=== PATIENT | female | born 1950 | race Caucasian/White ===

== ENCOUNTER 2019-01-03 06:43 | Day surgery (SDC) | payer MEDICARE ==
[2019-01-03] MEDS ORDERED: Lidocaine 2% 100 MG/5 ML Syringe IVPUSH ONE (06:44)
[2019-01-03] MEDS ORDERED: Propofol 200 MG/20 ML SDV IV ONE (06:44)
[2019-01-03] MEDS ORDERED: Lactated Ringers 1,000 ML IV SCH (06:45)
--- NOTE | 2019-01-03 08:16 | PREOP ---
ADMISSION DATE: 01/03/2019 CHIEF COMPLAINT: Positive Cologuard test. HISTORY OF PRESENT ILLNESS: This is a 68-year-old white female who is referred with positive Cologuard test. She is otherwise without complaints. Last scope was 10 years ago. She originally was supposed to have this procedure performed in September, but her had a coronary artery bypass graft, presents now to have this performed. PROBLEMS: Include history of cataract and astigmatism. SURGICAL HISTORY: Significant for appendectomy, tubal ligation. FAMILY HISTORY: Significant for bone cancer, liver cancer, and stroke. SOCIAL HISTORY: The patient is , with 2 children. She is a current everyday smoker. Denies any alcohol use. ALLERGIES: She has no known drug allergies. REVIEW OF SYSTEMS: The patient denies any constitutional, pulmonary, cardiac issues. Does note some left-sided abdominal pain. PHYSICAL EXAMINATION: GENERAL: This is a well-developed, well-nourished female, appearing in no acute distress. HEENT: Grossly within normal limits. LUNGS: Clear to auscultation. HEART: Had a regular rate and rhythm. ABDOMEN: Soft, nontender. ASSESSMENT: Positive Cologuard test. PLAN: Colonoscopy procedure and risks explained to the patient to include bleeding, perforation, and infection. The patient expresses understanding and she asked us to proceed. /[id number] /MEGHANNL
--- NOTE | 2019-01-03 08:20 | PCM.OPNOTE ---
- General Post-Op/Procedure Note Date of Surgery/Procedure: 01/03/19 Operative Procedure(s): c scope with bx Findings: rectal polyps x7 Pre Op Diagnosis: + Cologuard Post-Op Diagnosis: rectal polyps Anesthesia Technique: MAC Primary Surgeon: Antoni Keith Anesthesia Provider: Gerda Montiel Pathology: rectal polyps Complications: None Condition: Good Free Text/Narrative:: see dictation
--- NOTE | 2019-01-03 12:21 | OR ---
DATE OF OPERATION: 01/03/2019 SURGEON: Antoni Keith MD PROCEDURE PERFORMED: Colonoscopy with cold forceps biopsy. PREOPERATIVE DIAGNOSIS: Positive Cologuard test. POSTOPERATIVE DIAGNOSIS: Rectal polyps x7. INDICATIONS FOR PROCEDURE: This is a 68-year-old white female, who was referred with a positive Cologuard test. She was offered and accepted colonoscopy. DESCRIPTION OF OPERATION: After an excellent IV sedation was administered, digital rectal exam was performed. No marked abnormality was noted. The flexible colonoscope was inserted and advanced to the cecum without difficulty. Prep was excellent. The following findings were noted. Ascending colon, unremarkable. Transverse colon, unremarkable. Descending colon, unremarkable. Sigmoid, unremarkable. Rectum, approximately 7 hyperplastic appearing polyps were encountered. These were biopsied and submitted in a single container. The patient tolerated the procedure well. Results by letter. /[id number] /MEGHANNL
== END 2019-01-03 09:30 | disposition home or self-care (01) ==
LOC: FB.SDS 06:43
PROVIDERS: ATTEND Surgery
DX: K62.1 Rectal polyp (principal); F17.210 Nicotine dependence, cigarettes, uncomplicated; M19.90 Unspecified osteoarthritis, unspecified site
CPT/HCPCS: 00811; 45380; 88305; J2001; J2704; J7120

== ENCOUNTER 2020-03-27 05:51 | Emergency (ER) | payer MEDICARE ==
--- NOTE | 2020-03-27 06:11 | EDM.PDOC ---
ED HPI GENERAL MEDICAL PROBLEM - General Stated Complaint: HIP AND LEG PAIN Time Seen by Provider: 03/27/20 05:55 Source of Information: Reports: Patient History Limitations: Reports: No Limitations - History of Present Illness INITIAL COMMENTS - FREE TEXT/NARRATIVE: Patient presented to the ED because of left buttock pain radiating to the left thigh all the way down to her great toe. There is no associated low back pain, trauma, or injury. She apparently have MRI of her lumbar spine which showed nerve entrapment. There is no lost of bowel or bladder control. Treatments NON DESTRUCTIVE EVALUATION SPECIALIST: Reports: Acetaminophen L hip radiating to toes Pain Score (Numeric/FACES): 10 - Related Data Allergies Allergy/AdvReac Type Severity Reaction Status Date / Time No Known Allergies Allergy Verified 03/27/20 05:58 Home Meds: Home Meds Carboxymethylcellulos/Glycerin [Refresh Optive Gel Eye Drops] 1 drop EYEBOTH Q2H 01/03/19 [History] Gabapentin [Gralise] 300 mg PO TID #30 tab.er.24h 03/27/20 [Rx] Rosuvastatin [Crestor] 20 mg PO BEDTIME 03/27/20 [History] Valsartan [Diovan] 60 mg PO DAILY 03/27/20 [History] hydroCHLOROthiazide [Hydrochlorothiazide] 25 mg PO DAILY 03/27/20 [History] Past Medical History HEENT History: Reports: Cataract, Impaired Vision, Other (See Below) Other HEENT History: EYE CONDITION THAT CAUSES HIGH LIGHT SENSISTIVITY Cardiovascular History: Reports: None Respiratory History: Reports: None Gastrointestinal History: Reports: Colon Polyp, Other (See Below) Other Gastrointestinal History: + COLOGUARD TEST 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 RESIDENT History: II PARA II Musculoskeletal History: Reports: Arthritis Neurological History: Reports: None Psychiatric History: Reports: None Endocrine/Metabolic History: Reports: None Hematologic History: Reports: None Immunologic History: Reports: None Oncologic (Cancer) History: Reports: None Dermatologic History: Reports: None - Infectious Disease History Infectious Disease History: Reports: Chicken Pox, Measles, Mumps, Rubella - Past Surgical History Head Surgeries/Procedures: Reports: None HEENT Surgical History: Reports: Adenoidectomy, Tonsillectomy GI Surgical History: Reports: Appendectomy, Colonoscopy Female Surgical History: Reports: Tubal Ligation Social & Family History - Family History GI: Reports: Colon Polyps - Caffeine Use Caffeine Use: Reports: Coffee, Soda ED ROS GENERAL - Review of Systems Review Of Systems: See Below Constitutional: Reports: No Symptoms HEENT: Reports: No Symptoms Respiratory: Reports: No Symptoms Cardiovascular: Reports: No Symptoms Endocrine: Reports: No Symptoms GI/Abdominal: Reports: No Symptoms : Reports: No Symptoms Musculoskeletal: Reports: No Symptoms Skin: Reports: No Symptoms Neurological: Reports: Paresthesia, Tingling Psychiatric: Reports: No Symptoms ED EXAM, GENERAL - Physical Exam Exam: See Below Exam Limited By: Intoxication General Appearance: Alert, No Apparent Distress Eye Exam: Bilateral Eye: PERRL Nose: Normal Inspection, Normal Mucosa, No Blood Throat/Mouth: Normal Inspection, Normal Lips, Normal Teeth, Normal Gums Head: Atraumatic, Normocephalic Neck: Normal Inspection, Supple, Non-Tender, Full Range of Motion Respiratory/Chest: No Respiratory Distress, Lungs Clear, Normal Breath Sounds Cardiovascular: Normal Peripheral Pulses, Regular Rate, Rhythm, No Edema, No Gallop, No JVD, No Murmur GI/Abdominal: Normal Bowel Sounds, Soft, Non-Tender, No Organomegaly Back Exam: Normal Inspection, Full Range of Motion Extremities: Normal Inspection, Normal Range of Motion, Non-Tender Neurological: Alert, Oriented, CN II-XII Intact Psychiatric: Normal Affect, Normal Mood Course - Vital Signs Text/Narrative:: Gabapentin 600 mg po x1 Flexeril 10 mh PO x1 Last Recorded V/S: Last Vital Signs Temp 35.2 C L 03/27/20 05:51 Pulse 64 03/27/20 07:24 Resp 18 03/27/20 07:24 BP 98/46 L 03/27/20 07:24 Pulse Ox 97 03/27/20 07:24 - Orders/Labs/Meds Meds: Medications Discontinued Medications Generic Name Dose Route Start Last Admin Trade Name Freq PRN Reason Stop Dose Admin Cyclobenzaprine HCl 10 mg 03/27/20 06:18 03/27/20 06:31 Flexeril PO 03/27/20 06:19 10 mg ONETIME ONE Administration Gabapentin 600 mg 03/27/20 06:17 03/27/20 06:31 Neurontin PO 03/27/20 06:18 600 mg NOW STA Administration Departure - Departure Time of Disposition: 06:50 Disposition: Home, Self-Care 01 Condition: Good Clinical Impression: Nerve entrapment, Neuropathic pain - Discharge Information Prescriptions: Gabapentin [Gralise] 300 mg PO TID #30 tab.er.24h Instructions: Cyclobenzaprine tablets, Gabapentin capsules or tablets, Neuropathic Pain Referrals: Annabel Acosta PA-C [Primary Care Provider] - Forms: ED Department Discharge Additional Instructions: Please read discharge instructions on neuropathic pain and nerve entrapment Take gabapentin 300 mg with tylenol 1000 mg 3 tomes daily as needed for pain Follow up if symptoms persist Sepsis Event Note (ED) - Evaluation Sepsis Screening Result: No Definite Risk - Focused Exam Vital Signs: Vital Signs Temp Pulse Resp BP Pulse Ox 03/27/20 07:24 64 18 98/46 L 97 03/27/20 05:51 35.2 C L 59 L 18 112/50 L 98
[2020-03-27] MEDS ORDERED: Gabapentin 300 MG Cap PO STA (06:17)
[2020-03-27] MEDS ORDERED: Cyclobenzaprine 10 MG Tab PO ONE (06:18)
== END 2020-03-27 07:03 | disposition home or self-care (01) ==
LOC: FB.ED 05:51
DX: G58.9 Mononeuropathy, unspecified (principal); Z98.51 Tubal ligation status; Z90.49 Acquired absence of other specified parts of digestive tract
CPT/HCPCS: 99283; A9270

== ENCOUNTER 2020-11-27 10:09 | Emergency (ER) | payer MEDICARE ==
[2020-11-27] MEDS ORDERED: Aspirin 81 MG Tab.Chew PO ONE (10:21)
--- NOTE | 2020-11-27 10:51 | EDM.PDOC ---
ED HPI GENERAL MEDICAL PROBLEM - General Chief Complaint: Chest Pain Stated Complaint: CHEST PAIN Time Seen by Provider: 11/27/20 10:15 Source of Information: Reports: Patient, Family History Limitations: Reports: No Limitations - History of Present Illness INITIAL COMMENTS - FREE TEXT/NARRATIVE: Patient presented to the ED because of on and off chest pain for the past 2 years. The pain is dull, heavy, 2/10 at worse. The pain sometimes radiates to the left arm. There is no associated nausea,vomiting, dyspnea or diaphoresis. She had a stress test done 2 years ago which was normal. Chest Pain Score (Numeric/FACES): 3 - Related Data Allergies Allergy/AdvReac Type Severity Reaction Status Date / Time No Known Allergies Allergy Verified 03/27/20 05:58 Home Meds: Home Meds Carboxymethylcellulos/Glycerin [Refresh Optive Gel Eye Drops] 1 drop EYEBOTH Q2H 01/03/19 [History] Gabapentin [Gralise] 300 mg PO TID #30 tab.er.24h 03/27/20 [Rx] Rosuvastatin [Crestor] 20 mg PO BEDTIME 03/27/20 [History] Valsartan [Diovan] 60 mg PO BID 03/27/20 [History] hydroCHLOROthiazide [Hydrochlorothiazide] 25 mg PO DAILY 03/27/20 [History] Acetaminophen [Tylenol Arthritis] 650 mg PO Q8HR PRN 11/27/20 [History] Aspirin [Adult Low Dose Aspirin EC] 81 mg PO DAILY 11/27/20 [History] Past Medical History HEENT History: Reports: Cataract, Impaired Vision, Other (See Below) Other HEENT History: EYE CONDITION THAT CAUSES HIGH LIGHT SENSISTIVITY Cardiovascular History: Reports: None Respiratory History: Reports: None Gastrointestinal History: Reports: Colon Polyp, Other (See Below) Other Gastrointestinal History: + COLOGUARD TEST Genitourinary History: Reports: None 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 II Musculoskeletal History: Reports: Arthritis Neurological History: Reports: None Psychiatric History: Reports: None Endocrine/Metabolic History: Reports: None Hematologic History: Reports: None Immunologic History: Reports: None Oncologic (Cancer) History: Reports: None Dermatologic History: Reports: None - Infectious Disease History Infectious Disease History: Reports: Chicken Pox, Measles, Mumps, Rubella - Past Surgical History Head Surgeries/Procedures: Reports: None HEENT Surgical History: Reports: Adenoidectomy, Tonsillectomy GI Surgical History: Reports: Appendectomy, Colonoscopy Female Surgical History: Reports: Tubal Ligation Social & Family History - Family History Family Medical History: No Pertinent Family History GI: Reports: Colon Polyps - Tobacco Use Tobacco Use Status *Q: Unknown Ever Used Tobacco - Caffeine Use Caffeine Use: Reports: Coffee - Recreational Drug Use Recreational Drug Use: No ED ROS GENERAL - Review of Systems Review Of Systems: See Below Constitutional: Reports: No Symptoms HEENT: Reports: No Symptoms Respiratory: Reports: No Symptoms Cardiovascular: Reports: Chest Pain Endocrine: Reports: No Symptoms GI/Abdominal: Reports: No Symptoms : Reports: No Symptoms Musculoskeletal: Reports: No Symptoms Skin: Reports: No Symptoms Neurological: Reports: No Symptoms Psychiatric: Reports: No Symptoms ED EXAM, GENERAL - Physical Exam Exam: See Below Exam Limited By: No Limitations General Appearance: Alert, No Apparent Distress Eye Exam: Bilateral Eye: PERRL Ears: Normal External Exam, Normal Canal Nose: Normal Inspection, Normal Mucosa, No Blood Throat/Mouth: Normal Inspection, Normal Lips, Normal Teeth Head: Atraumatic, Normocephalic Neck: Normal Inspection, Supple, Non-Tender, Full Range of Motion Respiratory/Chest: No Respiratory Distress, Lungs Clear, Normal Breath Sounds, No Accessory Muscle Use, Chest Non-Tender Cardiovascular: Normal Peripheral Pulses, Regular Rate, Rhythm, No Edema, No Gallop, No JVD, No Murmur GI/Abdominal: Normal Bowel Sounds, Soft, Non-Tender, No Organomegaly Back Exam: Normal Inspection, Full Range of Motion Extremities: Normal Inspection Neurological: Alert, Oriented, CN II-XII Intact Course - Vital Signs Text/Narrative:: Lab/EKG result was reviewed and discussed with patient ASA 324 mg PO x1 Last Recorded V/S: Last Vital Signs Temp 36.4 C 11/27/20 10:10 Pulse 60 11/27/20 11:04 Resp 16 11/27/20 11:04 BP 133/47 L 11/27/20 11:04 Pulse Ox 99 11/27/20 11:04 - Orders/Labs/Meds Orders: Active Orders 24 hr Category Date Time Status EKG Documentation Completion [RC] ASDIRECTED Care 11/27/20 10:20 Active EKG 12 Lead [EK] Routine Ther 11/27/20 10:20 Ordered Labs: Laboratory Tests 11/27/20 11/27/20 11/27/20 Range/Units 09:40 09:40 09:40 WBC 6.0 (3.0-10.3) x10-3/uL RBC 3.69 (3.60-5.20) x10(6)uL Hgb 11.2 L (11.4-15.5) g/dL Hct 33.8 L (34.2-48.2) % MCV 91.8 (76.7-100.5) fL MCH 30.3 (23.9-33.9) pg MCHC 33.0 (31.9-34.8) g/dL RDW 12.8 (12.3-16.5) % Plt Count 259 (151-488) x10(3)uL MPV 7.7 (7.1-12.4) fL Neut % (Auto) 58.7 (30.8-76.2) % Lymph % (Auto) 30.1 (18.4-52.1) % Pratt % (Auto) 8.0 (4.4-15.7) % Eos % (Auto) 2.7 (0.6-8.1) % Baso % (Auto) 0.5 (0.2-1.5) % Neut # (Auto) 3.6 (1.5-6.3) x10-3/uL Lymph # (Auto) 1.8 (1.0-4.4) x10-3/uL Pratt # (Auto) 0.5 (0.3-1.0) x10-3/uL Eos # (Auto) 0.2 (0.0-0.8) x10-3/uL Baso # (Auto) 0.0 (0.0-0.1) x10-3/uL PT (9.0-11.1) sec INR (1.00-1.24) APTT (24.4-33.2) SECONDS D-Dimer, Quantitative (0.0-0.59) mg/LFEU Sodium 139 (135-145) mmol/L Potassium 4.6 (3.5-5.3) mmol/L Chloride 101 (100-110) mmol/L Carbon Dioxide 28 (21-32) mmol/L BUN 35 H (7-18) mg/dL Creatinine 1.9 H (0.55-1.02) mg/dL Est Cr Clr Drug Dosing 19.51 mL/min Estimated GFR (MDRD) 26 L (>60) BUN/Creatinine Ratio 18.4 (9-20) Glucose 193 H (80-116) mg/dL Calcium 8.4 L (8.6-10.2) mg/dL Total Bilirubin 0.4 (0.1-1.3) mg/dL AST 19 (5-25) IU/L ALT 26 (12-36) U/L Alkaline Phosphatase 75 (56-112) IU/L Troponin I 34.1 (4.0-60.3) pg/mL Total Protein 7.8 (6.0-8.0) g/dL Albumin 4.0 (3.2-4.6) g/dL Globulin 3.8 g/dL Albumin/Globulin Ratio 1.1 05// Range/Units 09:40 WBC (3.0-10.3) x10-3/uL RBC (3.60-5.20) x10(6)uL Hgb (11.4-15.5) g/dL Hct (34.2-48.2) % MCV (76.7-100.5) fL MCH (23.9-33.9) pg MCHC (31.9-34.8) g/dL RDW (12.3-16.5) % Plt Count (151-488) x10(3)uL MPV (7.1-12.4) fL Neut % (Auto) (30.8-76.2) % Lymph % (Auto) (18.4-52.1) % Pratt % (Auto) (4.4-15.7) % Eos % (Auto) (0.6-8.1) % Baso % (Auto) (0.2-1.5) % Neut # (Auto) (1.5-6.3) x10-3/uL Lymph # (Auto) (1.0-4.4) x10-3/uL Pratt # (Auto) (0.3-1.0) x10-3/uL Eos # (Auto) (0.0-0.8) x10-3/uL Baso # (Auto) (0.0-0.1) x10-3/uL PT 10.6 (9.0-11.1) sec INR 0.98 L (1.00-1.24) APTT 22.7 L (24.4-33.2) SECONDS D-Dimer, Quantitative 0.28 (0.0-0.59) mg/LFEU Sodium (135-145) mmol/L Potassium (3.5-5.3) mmol/L Chloride (100-110) mmol/L Carbon Dioxide (21-32) mmol/L BUN (7-18) mg/dL Creatinine (0.55-1.02) mg/dL Est Cr Clr Drug Dosing mL/min Estimated GFR (MDRD) (>60) BUN/Creatinine Ratio (9-20) Glucose (80-116) mg/dL Calcium (8.6-10.2) mg/dL Total Bilirubin (0.1-1.3) mg/dL AST (5-25) IU/L ALT (12-36) U/L Alkaline Phosphatase (56-112) IU/L Troponin I (4.0-60.3) pg/mL Total Protein (6.0-8.0) g/dL Albumin (3.2-4.6) g/dL Globulin g/dL Albumin/Globulin Ratio Meds: Medications Discontinued Medications Generic Name Dose Route Start Last Admin Trade Name Freq PRN Reason Stop Dose Admin Aspirin 324 mg 11/27/20 10:21 11/27/20 10:22 Aspirin 81 Mg Tab.Chew PO 11/27/20 10:22 324 mg ONETIME ONE Administration Departure - Departure Time of Disposition: 11:35 Disposition: Home, Self-Care 01 Condition: Good Clinical Impression: Atypical chest pain, Dehydration, CKD (chronic kidney disease) Instructions: Dehydration, Adult, [id number], Chronic Kidney Disease, Adult, [id number], Nonspecific Chest Pain, Adult Forms: ED Department Discharge Additional Instructions: Please read discharge instructions on non-specific chest pain Take tylenol 1000 mg every 8 hours as needed for pain Drink at least 2-3 liters of water daily. You easily get dehydrated because you are taking a diuretic/water pill called HCTZ-hydrochlorothiazide Keep your appointment to see the kidney specialist Folloe up as needed Sepsis Event Note (ED) - Evaluation Sepsis Screening Result: No Definite Risk - Focused Exam Vital Signs: Vital Signs Temp Pulse Resp BP Pulse Ox 11/27/20 11:04 60 16 133/47 L 99 11/27/20 10:10 36.4 C 60 16 137/51 L 98 - My Orders Last 24 Hours: My Active Orders 11/27/20 10:20 EKG Documentation Completion [RC] ASDIRECTED EKG 12 Lead [EK] Routine - Assessment/Plan Last 24 Hours: My Active Orders 11/27/20 10:20 EKG Documentation Completion [RC] ASDIRECTED EKG 12 Lead [EK] Routine
--- NOTE | 2020-11-27 11:43 | PCM.EKG ---
#1 Interpretation EKG Date: 11/27/20 Time: 10:25 Rhythm: NSR Rate (Beats/Min): 63 [place]: Normal P-Wave: Present QRS: Normal ST-T: Normal QT: Normal Comparison: NA - No Prior EKG EKG Interpretation Comments: NSR
== END 2020-11-27 11:52 | disposition home or self-care (01) ==
LOC: FB.ED 10:09
DX: R07.89 Other chest pain (principal); E86.0 Dehydration; N18.9 Chronic kidney disease, unspecified
CPT/HCPCS: 36415; 80053; 84484; 85025; 85379; 85610; 85730; 93005; 99285-25; A9270-GY

== ENCOUNTER 2022-08-28 13:19 | Emergency (ER) | payer OTHER, MEDICARE ==
[2022-08-28 13:41] LABS: ESTIMATED GFR 29 mL/min (>60)
[2022-08-28] MEDS ORDERED: traMADol 50 MG Tab PO ONE (14:05)
[2022-08-28] MEDS ORDERED: Cyclobenzaprine 10 MG Tab PO ONE (14:05)
[2022-08-28] MEDS ORDERED: Sodium Chloride 0.9% 1,000 ML IV SCH (15:45)
== END 2022-08-28 16:58 | disposition home or self-care (01) ==
LOC: FB.ED 13:19
DX: S22.31XA Fracture of one rib, right side, initial encounter for closed fracture (principal); I10 Essential (primary) hypertension; Z79.82 Long term (current) use of aspirin; Z79.899 Other long term (current) drug therapy; V43.62XA Car passenger injured in collision with other type car in traffic accident, initial encounter; Y92.410 Unspecified street and highway as the place of occurrence of the external cause
CPT/HCPCS: 36415; 70450; 71101; 72070; 72100; 72125; 73030; 80053; 85025; 85610; 85730; 99285; A9270